=== PATIENT | female | born 1950 | race Caucasian/White ===

== ENCOUNTER 2017-09-10 12:57 | Inpatient (IN) | payer MEDICARE, OTHER ==
[~2017-09-10] VITALS: Ht 160 cm; Wt 75.7 kg
[2017-09-10] VITALS (24 sets, daily range): BP systolic 13–152; BP diastolic 71–103
[~2017-09-10 12:57] MED LIST: AMITRIPTYLINE H25 M2 PO; ASACOL HD800 MG PO; CENTRUM SILVER1 EAC4 PO; FLONASE 0.05%50 MCG NASAL; LEVAQUIN 500 M500 M2 PO; POTASSIUM20 PO; PREDNISONE 20 M20 MG PO; PRINIVIL20 MG; PROTONIX40 M1 PO; TYLENOL325 MG PO; UCERIS9 MG PO; VITAMIN D2000 UNI1 PO; VITAMIN E100 UNI2; VITAMIN E400 UNIT PO; ZESTORETIC 20-1 EAC2 PO
[2017-09-10 13:30] LABS: HEMATOCRIT 42.7 % (37.0-47.0); HEMOGLOBIN 14.7 gm/dL (12.0-15.0); MCH 29.8 pg (26.0-34.0); MCHC 34.4 g/dL (28.0-37.0); MCV 86.6 fL (80.0-100.0); MPV 8.9 fl. (7.2-11.1); NUCLEATED RBCS 0 /100WBC; PLATELET COUNT* 301 thou/uL (150-400); RBC 4.93 mil/uL (4.20-5.00); RDW-CV 14.6 % (10.5-14.5); WBC 6.4 thou/uL (4.0-11.0)
[2017-09-10 13:35] LABS: CALCIUM 8.7 mg/dL (8.5-10.1); POTASSIUM 3.6 mmol/L (3.5-5.1)
[2017-09-10 13:37] LABS: APTT 27.5 Seconds (25.0-31.3); INR 1.1; PROTIME 10.7 Seconds (9.20-11.50)
[2017-09-10] MEDS ORDERED: SIMPONI100 MG/1 M IM (13:43)
[2017-09-10] MEDS ORDERED: APRISO0.375 GM PO (13:44)
[2017-09-10 13:45] LABS: ALBUMIN 3.1 g/dL (3.4-5.0); TOTAL BILIRUBIN 0.4 mg/dL (<0.1-1.0); TOTAL PROTEIN 7.6 g/dL (6.4-8.2)
[2017-09-10] MEDS ORDERED: MAXALT MLT ODT10 M1 PO (13:45)
[2017-09-10] MEDS ORDERED: TOPROL XL25 MG PO (13:46)
[2017-09-10 13:51] LABS: ABSOLUTE EOSINOPHILS 1.5 thou/uL (0.0-0.7); ABSOLUTE LYMPHOCYTES 1.5 thou/uL (0.8-5.3); ABSOLUTE MONOCYTES 0.3 thou/uL (0.0-1.2); ABSOLUTE NEUTROPHILS 3.1 thou/uL (1.6-8.1); HYPOCHROMASIA 1+; PLATELET ESTIMATE ADEQUATE; TOXIC GRANULATION Occasional
--- NOTE | 2017-09-10 15:46 | NUR ---
UPON RE-ASSESSMENT OF GIVING PT MORPHINE, HER PAIN IS STILL 9/10.
--- NOTE | 2017-09-10 17:07 | NUR ---
PT PASSED NURSING BEDSIDE SWALLOW. PER NEUROLOGY THE PATIENT CAN BE ADVANCED TO A REGULAR DIET.
--- NOTE | 2017-09-10 19:37 | NUR ---
PT ARRIVED TO ICU ROOM 3 VIA CART FROM THE ED AT 1550. PT ASSESSMENT CHARTED. VSS. NIH ON ADMISSION WAS 3. PT ABLE TO MOVE ALL EXTREMETIES WITHOUT DIFFICULTY. UP TO BEDSIDE COMMODE WITH SBA. HEADACHE PAIN 10/10 ON ADMISSION. PAIN AT END OF SHIFT 4/10. PRN HYDROCODONE ORDER RECEIVED. IF HEADACHE DOES NOT DECREASE ORDER RECEIVED TO CT HEAD. PT'S AT THE BEDSIDE. NO OTHER COMPLAINTS AT THIS TIME.
[2017-09-11] VITALS (9 sets, daily range): BP systolic 109–153; BP diastolic 60–87
[2017-09-11 02:12] LABS: POC CA IONIZED 4.8 mg/dL (4.5-5.3); POC CREATININE 0.8 mg/dL (0.6-1.3); POC HEMOGLOBIN 15.6 g/dL (12.0-17.0); POC POTASSIUM 3.8 mmol/L (3.5-4.9)
[2017-09-11 03:14] LABS: GLYCOHEMOGLOBIN (HGB A1C) 5.8 % (4.8-5.6)
[2017-09-11 03:23] LABS: URINE BILIRUBIN NEGATIVE (Negative); URINE BLOOD NEGATIVE (Negative); URINE CLARITY CLEAR; URINE COLOR YELLOW; URINE GLUCOSE-RANDOM NEGATIVE (Negative); URINE KETONES NEGATIVE (Negative); URINE LEUKOCYTES-REFLEX NEGATIVE (Negative); URINE NITRITE-REFLEX NEGATIVE (Negative); URINE PROTEIN NEGATIVE (Negative); URINE SPECIFIC GRAVITY <= 1.005 (1.005-1.030); URINE UROBILINOGEN 0.2 E.U./dl (0.2-1.0)
--- NOTE | 2017-09-11 05:07 | NUR ---
ASSUMED CARE OF PT AT 1900, PT ALERT AND ORIENTED X4. VS AND ASSESSMENT STABLE. STAYED IN ROOM WITH PT UNTIL 2100 AND ASSESSED NIH AND VS EVERY 30 MINS TO COMPLETE THE FIRST 8 HOURS POST TPA THEN CONTINUED EVERY HOUR AFTER THE 30 MIN ASSESSMENTS WERE COMPLETED. PT NIH STABLE AND IMPROVING WITH MILD EXPRESSIVE APHAGIA THE ONLY CURRENT DEFICIT PT HAD PRN NORCO FOR HEADACHE RATED 1-2/10 AT 2100 WITH GOOD EFFECT PT STATED HER HEADACHE WAS GONE AND SLEPT THROUGH THE NIGHT EXCEPT DURING NIH ASSESSMENTS. PT RUNNING NSR ON THE TELE MONITOR. WILL CONTINUE TO MONITOR.
[2017-09-11 07:41] LABS: ALKALINE PHOSPHATASE 122 U/L (46-116); ANION GAP 8 mmol/L (7-16); BUN 9 mg/dL (7-18); CALCIUM 8.7 mg/dL (8.5-10.1); CHLORIDE 102 mmol/L (98-107); CHOLESTEROL 157 mg/dL (<200); CO2 26 mmol/L (21-32); CREATININE 0.8 mg/dL (0.6-1.3); GLUCOSE 85 mg/dL (70-99); HDL CHOLESTEROL 37 mg/dL (>40); LDL CHOLESTEROL 74 mg/dL (<100); POTASSIUM 4.3 mmol/L (3.5-5.1); SERUM ASSESSMENT Clear; SGOT 17 U/L (15-37); SGPT 10 U/L (30-65); SODIUM 136 mmol/L (136-145); TC:HDL 4.2 Ratio (Not establshd); TOTAL BILIRUBIN 0.5 mg/dL (<0.1-1.0); TRIGLYCERIDE 233 mg/dL (<150); VLDL 47 mg/dL (<40)
--- NOTE | 2017-09-11 10:45 | NUR ---
PATIENT TRANFER FROM ICU 3 TO TELE FLOOR 2 RM 224, POST MRI REPORT GIVEN FROM RN EDGAR WILL ASSUME CARE WHEN RN GETS TO FLOOR WITH SI PATIENT BED 8
--- NOTE | 2017-09-11 10:56 | NUR ---
I ASSUMED CARE OF THE PATIENT AT 0700. SHE IS ALERT AND ORIENTED X4 AND IS UP WITH STAND BY ASSIST. BED IS IN THE LOW LOCKED POSITION AND CALL LIGHT IS IN REACH. HOURLY ROUNDING WAS COMPLETED AND PATIENT NEEDS ARE MET. PAIN IS MANAGED WITH PRN MEDS. NIH SCORE IS 0 FOR ME X2. PATIENT WAS TRANSPORTED TO MRI AND THEN TRANSFERED TO TELE. ORDERS WERE FAXED TO CT FOR 1600 SCAN. ONE TIME ATIVAN DOSE GIVEN PRIOR TO MRI. ASSESSMENT WAS COMPLETED. SHE WAS TAKEN TO MRI AT 0930 AND I TOOK HER TO 224 TO WAIT FOR HER AT 0945. PATIENT IS PROGRESSING TOWARD GOALS. WILL CONTINUE TO MONITOR.
--- NOTE | 2017-09-11 11:00 | NUR ---
TO 2ND FLOOR WITH ANOTHER PATIENT AND ASSUMMED CARE, PATIENT IN RM AND SPOUSE AT BEDSIDE AND WITHOUT ANY CONCERNS OR REQUESTS
--- NOTE | 2017-09-11 13:37 | NUR ---
MET WITH PT AND SPOUSE TO DISCUSS HOME SITUATION/DC PLANNING. PT LIVES WITH SPOUSE. SHE IS NORMALLY INDEPENDENT AND ACTIVE. USES NO EQUIPMENT OR HOME CARE. STATES SHE IS TALKING MORE CLEARLY TODAY AND PLEASED ABOUT THAT. PT ADMITTED WITH CVA. THERAPY EVALS IN PROCESS. PT HASN'T HAD HH IN PAST OR BEEN TO SNF. WILL FOLLOW
--- NOTE | 2017-09-11 14:29 | 2DMMODE ---
[place] [address] 2 D/M-MODE ECHOCARDIOGRAM Name: DEBI GUADARRAMA [facility] IN [facility]#: [id number] Admission: 09/10/17 Attend Phys: Aguilar Gillette, Discharge: Date of : 52 Date of Service: 09/11/17 1429 Report #: [id number] THIS REPORT FOR: //name// APPROVED REPORT Study performed: 09/11/2017 10:33:48 EXAM: Comprehensive 2D, Doppler, and color-flow Echocardiogram Patient Location: In-Patient Room #: [facility] Status: routine BSA: 1.77 HR: 74 bpm BP: 135/80 mmHg Rhythm: NSR Other Information Study Quality: Good Indications CVA/TIA Echo Enhancing Agent Indication: Rule out Shunt Agent(s) / Amount(s) Used: Agitated Saline 10 cc 2D Dimensions LVEF(%): 78.88 (>50%) IVSd: 12.35 (7-11mm) LVOT Diam: 21.67 (18-24mm) LVDd: 42.70 mm PWd: 10.26 (7-11mm) Ascending Ao: 38.76 (22-36mm) LVDs: 22.56 (25-40mm) Aortic Root: 36.14 mm Dawkins's LVEF: 78.88 % Volumes Left Atrial Volume (Systole) LA ESV Index: 21.90 mL/m2 Aortic Valve AoV Peak Nicho.: 1.01 m/s AO Peak Gr.: 4.08 mmHg LVOT Max P.81 mmHg AO Mean Gr.: 2.31 mmHg LVOT Mean P.41 mmHg LVOT Max V: 0.84 m/s AO V2 VTI: 22.64 cm LVOT Mean V: 0.55 m/[place] [address] 2 D/M-MODE ECHOCARDIOGRAM Name: DEBI GUADARRAMA Room: [address] IN .R.#: [id number] Admission: 09/10/17 Attend Phys: Aguilar Gillette, Discharge: Date of : 52 Date of Service: 09/11/17 1429 Report #: [id number] ERIC (VTI): 3.52 cm2 LVOT V1 VTI: 21.62 cm Mitral Valve E/A Ratio: 1.06 MV Decel. Time: 203.05 ms MV E Max Nicho.: 0.70 m/s MV PHT: 58.88 ms MVA (PHT): 3.74 cm2 TDI E/Lateral E': 8.75 E/Medial E': 7.78 Medial E' Nicho.: 0.09 m/s Lateral E' Nicho.: 0.08 m/s Pulmonary Valve PV Peak Nicho.: 0.75 m/s PV Peak Gr.: 2.22 mmHg Left Ventricle The left ventricle is normal size. There is normal LV segmental wall motion. There is normal left ventricular wall thickness. Left ventricular systolic function is normal. The left ventricular ejection fraction is within the normal range. LVEF is 65-70%. The left ventricular diastolic function is normal. Right Ventricle The right ventricle is normal size. The right ventricular systolic function is normal. Atria The left atrium size is normal. Interatrial septum is intact without evidence of ASD or PFO. The right atrium size is normal. Aortic Valve The aortic valve is normal in structure. No aortic regurgitation is present. There is no aortic valvular stenosis. Mitral Valve The mitral valve is normal in structure. Trace mitral regurgitation. No evidence of mitral valve stenosis. Tricuspid Valve The tricuspid valve is normal in structure. Unable to assess PA pressure. Trace tricuspid regurgitation. Pulmonic Valve Pulmonic valve is not well visualized. There [place] [address] 2 D/M-MODE ECHOCARDIOGRAM Name: DEBI GUADARRAMA Room: [address] IN M.R.#: [id number] Admission: 09/10/17 Attend Phys: Aguilar Gillette, Discharge: Date of : 52 Date of Service: 09/11/17 1429 Report #: [id number] regurgitation. Great Vessels Aortic root is mildly dilated. IVC is normal in size and collapses with >50% inspiration Pericardium There is no pericardial effusion. <Conclusion> LVEF is 65-70%. Interatrial septum is intact without evidence of ASD or PFO. <ELECTRONICALLY SIGNED> By: Kevin Malone MD, FACC 09/11/17 1429 1429 1429 Kevin Malone MD, FACC /INF
[2017-09-12] VITALS: BP 124/77; BP 179/99
[2017-09-12 04:00] VITALS: BP 155/97
--- NOTE | 2017-09-12 05:10 | NUR ---
PT IS ABLE TO COMMUNICATE HER NEEDS TO STAFF EFFECTIVELY. CURRENT PAIN MEDICATION REGIMEN HAS BEEN ADEQUATE FOR CONTROLLING HER PAIN UP TO THIS TIME. PT PASSED BEDSIDE SWALLOW TEST BEFORE MED PASS AT THE BEGINNING OF THIS SHIFT. PT REPORTS HER VISION BEING BACK TO NORMAL AND HEADACHE GONE, AT THE BEGINNING OF THIS SHIFT.
--- NOTE | 2017-09-12 07:30 | NUR ---
CHANGE OF SHIFT, BEDSIDE REPORT GIVEN ASSUMED PATIENT CARE PATIENT SEN AT BEDSIDE, ASLEEP BED ALARM SET
[2017-09-12 08:00] VITALS: BP 156/84
[2017-09-12 12:00] VITALS: BP 141/82
[2017-09-12 15:17] VITALS: BP 141/82
--- NOTE | 2017-09-12 15:50 | NUR ---
PATIENT DCD TO HOME DC INSTRUCTIONS GIVEN, ACKNOWLEDGED AND SIGNED COPIES GIVEN IV AND HEART MONITOR REMOVED PERSONAL BELONGINGS RETURNED ASSISTED OUT VIA WC GOOD CONDITION TO WAITING CAR
--- NOTE | 2017-09-16 19:06 | CON ---
[address] [address] CONSULTATION Name: DEBI GUADARRAMA Room: [address] IN M.R.#: [id number] Admission: 09/10/17 Attend Phys: Aguilar Gillette MD Discharge: 09/12/17 Date of : 52 Report #: [id number] THIS REPORT FOR: //name// CC: Aguilar Newman DATE OF SERVICE: 09/10/2017 HISTORY OF PRESENT ILLNESS: This is a 67-year-old female patient who presented to Emergency Room with acute onset of slurring of the speech and inability to write. She was pretty significantly aphasic as I understood from the Emergency Room physician. She also had some vision difficulty, which may be hemianopsia. She was evaluated by Emergency Room physician, Dr. Mejias and she evaluated the patient as a stroke protocol. As I understand, she was within the 3-hour windows and after discussing with the patient indication, potential complication and alternatives with the patient, she was given TPA. She tolerated the TPA reasonably well and TPA was already complete when I saw this patient and she had no adverse effect from that. Her symptom has significantly improved. As a workup, she had initially the CT head and subsequently CTA of the head and neck. She also has a perfusion scan, which demonstrated left cerebral transit time was increased. REVIEW OF SYSTEMS: Indicate that she has a history of migraine. This is going on for several years. She takes Maxalt. She will take 1, Maxalt at one time, then she may not need one for several months. So, these migraine headaches are not very frequent. She never had any focal neurological deficit with a migraine headache. She thought she may have had some speech difficulty about a week ago, but she is not very clear about it. She does have a history of ulcerative colitis. She does not have any active bleeding going on. She also has a history of duodenal ulcer. Again, there is no active disease going on in that regard in this patient. In fact, her hemoglobin was normal. Presently, her symptoms are much improved, but she is having headache, which actually she had it for at least 10 days or so. The migraine headache she typically has is bilateral. It is associated with some nausea and all was associated with a photophobia. REVIEW OF SYSTEMS: Her 14-point review of system was carried out. This was her relevant 14-point review of system. PAST MEDICAL HISTORY: Positive for migraine. FAMILY HISTORY: Negative for early age stroke. SOCIAL HISTORY: She does not smoke or drink alcohol. PHYSICAL EXAMINATION: [place] [address] CONSULTATION Name: DEBI GUADARRAMA Room: [address] IN ..#: [id number] Admission: 09/10/17 Attend Phys: Aguilar Gillette MD Discharge: 09/12/17 Date of : 52 Report #: [id number] NEUROLOGICAL: Indicate she is alert, responsive, able to follow simple and complex command. Her speech still some hesitant but apparently is much improved than when she came in. Cranial nerve examination on my examination looks unremarkable. I did not find any hemianopsia in this patient but she has some nonspecific vision symptoms, which according to her is becoming better. She does not have any facial palsy. Her strength, sensation, reflexes and tones are symmetrical. She has no cerebellar sign. I could not look at the patient's fundus. CARDIAC: Her records were reviewed and is summarized as above especially CT angiogram was reviewed. LUNGS: The patient has no respiratory difficulty or rhonchi. GENERAL: She is a very well-developed individual who does not have any dysmorphic features of eyes, ears and face. HEENT: Her vision and hearing looks adequate. EXTREMITIES: She has good pulses and she has no edema, cyanosis or jaundice. NECK: She has no thyroid mass or carotid bruit. VITAL SIGNS: Blood pressure when she came in was 152/91, respiration was 16, pulse 93 and temperature 98.2. LABORATORY DATA AND RADIOLOGICAL DATA: Imaging study was reviewed and summarized above. She has no rhonchi or respiratory difficulty. IMPRESSION AND PLAN: This patient presented with stroke-like symptoms referable to the left cerebral hemisphere. She is stable after receiving tissue plasminogen activator. Tissue plasminogen activator was given by Emergency Room physician after discussing the indication, potential complication, and alternatives with the patient and after the patient understood all those and was agreeable with that. I further discussed all of it with the patient and she understood that again and she indicated that she is aware of it because they have been discussed. I was going to do an MRI in this patient. The patient indicates that she will need sedation for Valium. She gives a history that she may have had a little speech difficulty about a week ago and because of that, I do want to sedate and indicate she has any bleeding, we need to know early. Therefore, I postponed the MRI until tomorrow after talking to the patient. I will suggest that she gets some swallow evaluation. She is not having any significant speech difficulty at the moment and that has resolved, so it is okay to do the bedside swallow and start feeding her if she passes the bedside swallow and since speech difficulty has resolved, I do not believe there is any need to wait for speech therapy to do the evaluation. She got some dye, so we should push some fluids. We should follow the tissue plasminogen activator protocol after that and tomorrow, we will do the testing including MRI in this patient. She also has multiple other issues in the past and those need to be addressed in this patient including a question of temporal arteritis and rheumatoid arthritis, but they will be addressed [place] [address] CONSULTATION Name: ARISTIDESNIDANATDEBI Room: [address] IN .R.#: [id number] Admission: 09/10/17 Attend Phys: Aguilar Gillette MD Discharge: 09/12/17 Date of : 52 Report #: [id number] Thank you very much for allowing me to share in the management of this patient and we will follow the patient along with you. <ELECTRONICALLY SIGNED> By: Subhash Sears MD 09/16/17 1906 1650 [id number] Sears MD /nt
== END 2017-09-12 15:50 | disposition home or self-care (01) | DRG 61 ==
LOC: M.ERS 12:57 → M.ICU 15:01 → M.TBA-ER 15:01 → M.ICU 15:51 → M.2W 09-11 10:05
PROVIDERS: Personal Emergency Response Attendant; ADMIT Internal Medicine
DX: G45.9 Transient cerebral ischemic attack, unspecified (principal); G93.40 Encephalopathy, unspecified; K51.90 Ulcerative colitis, unspecified, without complications; R47.01 Aphasia; G43.109 Migraine with aura, not intractable, without status migrainosus; K57.90 Diverticulosis of intestine, part unspecified, without perforation or abscess without bleeding; M79.7 Fibromyalgia; Z79.82 Long term (current) use of aspirin; H54.7 Unspecified visual loss; Z79.899 Other long term (current) drug therapy; Z85.3 Personal history of malignant neoplasm of breast; Z90.11 Acquired absence of right breast and nipple; Z92.21 Personal history of antineoplastic chemotherapy; Z90.710 Acquired absence of both cervix and uterus; Z88.1 Allergy status to other antibiotic agents; Z88.0 Allergy status to penicillin

== ENCOUNTER → 2018-01-12 | Outpatient (CLI) | payer MEDICARE, OTHER ==
[~2018-01-12] MED LIST changes: +ANUSOL-HC25 MG RECTAL; +APRISO0.375 GM PO; +LIDOCAINE 2%2 %/5 GM TOP; +MAXALT MLT ODT10 M1 PO; +PLAVIX 300 MG300 M1 PO; +PREDNISONE 10 M10 MG PO; +SIMPONI100 MG/1 M IM; +TOPROL XL25 MG PO
== END ==
LOC: M.RAD 13:02
DX: Z12.31 Encounter for screening mammogram for malignant neoplasm of breast (principal)

== ENCOUNTER 2018-01-22 16:35 | Emergency (ER) | payer MEDICARE, OTHER ==
[~2018-01-22] VITALS: Ht 160 cm; Wt 70.3 kg
[~2018-01-22 16:35] MED LIST changes: -ANUSOL-HC25 MG RECTAL; -LIDOCAINE 2%2 %/5 GM TOP; -PLAVIX 300 MG300 M1 PO; -PREDNISONE 10 M10 MG PO
[2018-01-22 18:07] VITALS: BP 156/103
== END 2018-01-22 18:07 | disposition home or self-care (01) ==
LOC: M.ERS 16:35
DX: I83.92 Asymptomatic varicose veins of left lower extremity (principal); M79.7 Fibromyalgia; Z88.0 Allergy status to penicillin; Z88.1 Allergy status to other antibiotic agents; Z88.6 Allergy status to analgesic agent; Z90.710 Acquired absence of both cervix and uterus

== ENCOUNTER 2018-06-14 11:12 | Emergency (ER) | payer MEDICARE, OTHER ==
[~2018-06-14] VITALS: Ht 162.6 cm; Wt 72.6 kg
[2018-06-14] MEDS ORDERED: PLAVIX 300 MG300 M1 PO (11:25)
[2018-06-14] MEDS ORDERED: PREDNISONE 10 M10 MG PO (11:25)
[2018-06-14 12:21] LABS: HEMATOCRIT 35.8 % (37.0-47.0); HEMOGLOBIN 11.9 gm/dL (12.0-15.0); MCH 27.4 pg (26.0-34.0); MCHC 33.1 g/dL (28.0-37.0); MCV 82.6 fL (80.0-100.0); MPV 7.6 fl. (7.2-11.1); NUCLEATED RBCS 0 /100WBC; PLATELET COUNT* 544 thou/uL (150-400); RBC 4.33 mil/uL (4.20-5.00); RDW-CV 15.5 % (10.5-14.5); WBC 11.2 thou/uL (4.0-11.0)
[2018-06-14 12:26] LABS: ANION GAP 10 mmol/L (7-16); BUN 25 mg/dL (7-18); CALCIUM 9.7 mg/dL (8.5-10.1); CHLORIDE 95 mmol/L (98-107); CO2 23 mmol/L (21-32); CREATININE 1.3 mg/dL (0.6-1.3); GLUCOSE 140 mg/dL (70-99); POTASSIUM 4.4 mmol/L (3.5-5.1); SODIUM 128 mmol/L (136-145)
[2018-06-14 12:36] LABS: ALBUMIN 2.8 g/dL (3.4-5.0); ALKALINE PHOSPHATASE 129 U/L (46-116); LIPASE 57 U/L (73-393); SGOT 15 U/L (15-37); SGPT 17 U/L (30-65); TOTAL BILIRUBIN 0.3 mg/dL (<0.1-1.0); TOTAL PROTEIN 8.1 g/dL (6.4-8.2); TROPONIN-I LEVEL <0.06 ng/mL (<0.06)
[2018-06-14 12:53] LABS: ABSOLUTE LYMPHOCYTES 1.9 thou/uL (0.8-5.3); ABSOLUTE NEUTROPHILS 9.3 thou/uL (1.6-8.1); ATYPICAL LYMPHS 4 %; METAMYELOCYTES 1 %; MYELOCYTES 1 %; PLATELET ESTIMATE ADEQUATE
[2018-06-14] MEDS ORDERED: LIDOCAINE 2%2 %/5 GM TOP (14:17)
[2018-06-14] MEDS ORDERED: ANUSOL-HC25 MG RECTAL (14:17)
[2018-06-14 15:04] VITALS: BP 100/60
--- NOTE | 2018-06-14 17:55 | EKG ---
[place] [address] ELECTROCARDIOGRAM REPORT Name: DEBI GUADARRAMA Room: [facility]#: [id number] Admission: 06/14/18 Attend Phys: Discharge: 06/14/18 Date of : 52 Report #: [id number] THIS REPORT FOR: //name// [facility] ED Test Date: 2018-06-14 Test Time: 12:40:06 Pat Name: DEBI GUADARRAMA Department: Room: Gender: F Staffing Assistant: Sid SANTILLAN : 1950 Requested By: Ross Hughes Order Number: [id number] MD: Jhony Lowery Measurements Intervals [place] Rate: 88 P: 33 MI: 163 QRS: 20 QRSD: 118 T: 25 QT: 363 QTc: 440 Interpretive Statements Sinus rhythm Possible left atrial enlargement Low voltage, precordial leads Baseline wander in lead(s) V1,V3 Compared to ECG 10/11/2014 16:32:34 Low QRS voltage now present Myocardial infarct finding no longer present Electronically Signed On 06-14-2018 17:55:01 CDT by Jhony Lowery [email or web address] <ELECTRONICALLY SIGNED> By: Jhony Lowery MD, FACC 06/14/18 1755 1240 1240 Jhony Lowery MD, FACC /EPI
== END 2018-06-14 15:05 | disposition home or self-care (01) ==
LOC: M.ERS 11:12
PROVIDERS: Emergency Medicine Emergency Medical Services
DX: K51.90 Ulcerative colitis, unspecified, without complications (principal); K60.2 Anal fissure, unspecified; M79.7 Fibromyalgia; M06.9 Rheumatoid arthritis, unspecified; L40.9 Psoriasis, unspecified; Z88.6 Allergy status to analgesic agent; Z88.1 Allergy status to other antibiotic agents; Z88.0 Allergy status to penicillin; N80.9 Endometriosis, unspecified; Z85.3 Personal history of malignant neoplasm of breast; Z90.710 Acquired absence of both cervix and uterus; Z86.73 Personal history of transient ischemic attack (TIA), and cerebral infarction without residual deficits

== ENCOUNTER → 2018-09-21 | Outpatient (CLI) | payer MEDICARE, OTHER ==
[~2018-09-21] MED LIST changes: +ANUSOL-HC25 MG RECTAL; +LIDOCAINE 2%2 %/5 GM TOP; +PLAVIX 300 MG300 M1 PO; +PREDNISONE 10 M10 MG PO
== END ==
LOC: M.ULTRA 11:30
DX: N28.1 Cyst of kidney, acquired (principal)

== ENCOUNTER → 2019-04-21 | Outpatient (CLI) | payer MEDICARE, OTHER | LOC: M.RAD 12:11 → M.ULTRA 12:11 | DX: Z12.31 Encounter for screening mammogram for malignant neoplasm of breast (principal); I73.9 Peripheral vascular disease, unspecified; Z88.0 Allergy status to penicillin; Z88.8 Allergy status to other drugs, medicaments and biological substances; Z85.3 Personal history of malignant neoplasm of breast ==

== ENCOUNTER → 2020-09-20 | Outpatient (CLI) | payer MEDICARE, OTHER ==
[2020-09-20 13:01] LABS: ABSOLUTE LYMPHOCYTES 0.8 thou/uL (0.8-5.3); ABSOLUTE MONOCYTES 0.3 thou/uL (0.0-1.2); ABSOLUTE NEUTROPHILS 1.8 thou/uL (1.6-8.1); BASOPHILS 1.4 %; EOSINOPHILS 1.3 %; HEMATOCRIT 34.2 % (37.0-47.0); HEMOGLOBIN 11.4 gm/dL (12.0-15.0); LYMPHOCYTES 27.2 %; MCH 26.5 pg (26.0-34.0); MCHC 33.4 g/dL (28.0-37.0); MCV 79.4 fL (80.0-100.0); MONOCYTES 10.1 %; MPV 7.2 fl. (7.2-11.1); NUCLEATED RBCS 0 /100WBC; PLATELET COUNT* 193 thou/uL (150-400); RBC 4.31 mil/uL (4.20-5.00); RDW-CV 17.5 % (10.5-14.5); WBC 2.9 thou/uL (4.0-11.0)
[2020-09-20 13:08] LABS: CALCIUM 9.8 mg/dL (8.5-10.1); CREATININE 1.2 mg/dL (0.6-1.3); POTASSIUM 4.4 mmol/L (3.5-5.1)
--- NOTE | 2020-09-20 14:07 | EKG ---
[place] [address] ELECTROCARDIOGRAM REPORT Name: DEBI GUADARRAMA Room: [facility]#: [id number] Admission: 09/20/20 Attend Phys: Jesusita Joe Discharge: Date of : 52 Date of Service: 09/20/20 1336 Report #: [id number] THIS REPORT FOR: //name// [facility] Test Date: 2020-09-20 Test Time: 13:36:50 Pat Name: DEBI GUADARRAMA Department: Room: Gender: F [employer] Worker: : 1950 Requested By: Jesusita Sutherland Order Number: [id number] MD: Kevin Malone Measurements Intervals [place] Rate: 72 P: 28 FL: 192 QRS: 43 QRSD: 105 T: 48 QT: 404 QTc: 443 Interpretive Statements Sinus rhythm Left atrial enlargement Compared to ECG 06/14/2018 12:40:06 No significant changes Electronically Signed On 09-20-2020 14:07:06 [employer] DIRECT[employer] by Kevin Malone [email or web address] <ELECTRONICALLY SIGNED> By: Kevin Malone MD, [facility] 09/20/20 1407 1336 1336 Kevin Malone MD, [facility] /EPI
== END ==
LOC: M.LAB 12:28
PROVIDERS: ATTEND Urology
DX: Z12.31 Encounter for screening mammogram for malignant neoplasm of breast (principal); N32.9 Bladder disorder, unspecified; N39.0 Urinary tract infection, site not specified; I49.9 Cardiac arrhythmia, unspecified; I51.7 Cardiomegaly

== ENCOUNTER → 2020-11-06 | Outpatient (CLI) | payer MEDICARE, OTHER | LOC: M.RAD 12:58 | PROVIDERS: ATTEND Internal Medicine | DX: I48.0 Paroxysmal atrial fibrillation (principal); M47.9 Spondylosis, unspecified ==

== ENCOUNTER 2020-12-16 14:37 | Emergency (ER) | payer MEDICARE, OTHER ==
[~2020-12-16] VITALS: Ht 160 cm; Wt 72.6 kg
[2020-12-16] MEDS ORDERED: ASA81BEC PO (14:52)
[2020-12-16] MEDS ORDERED: ENTYVIO300 MG IV (14:52)
[2020-12-16] MEDS ORDERED: METFORMIN HCL500 M3 PO (14:53)
[2020-12-16] MEDS ORDERED: CEPHALEXIN500 MG PO (15:43)
[2020-12-16] MEDS ORDERED: TRIAMCINOLONE A80 G2 TOP (15:43)
[2020-12-16 16:00] VITALS: BP 117/80
== END 2020-12-16 16:01 | disposition home or self-care (01) ==
LOC: M.ERS 14:37
DX: L53.9 Erythematous condition, unspecified (principal); R21 Rash and other nonspecific skin eruption; M79.7 Fibromyalgia; L40.9 Psoriasis, unspecified; N80.9 Endometriosis, unspecified; Z88.6 Allergy status to analgesic agent; Z88.0 Allergy status to penicillin; Z88.1 Allergy status to other antibiotic agents; Z85.3 Personal history of malignant neoplasm of breast; Z90.11 Acquired absence of right breast and nipple; Z90.710 Acquired absence of both cervix and uterus; Z86.73 Personal history of transient ischemic attack (TIA), and cerebral infarction without residual deficits

== ENCOUNTER → 2021-01-29 | Outpatient (CLI) | payer MEDICARE, OTHER ==
[~2021-01-29] MED LIST changes: +ASA81BEC PO; +CEPHALEXIN500 MG PO; +ENTYVIO300 MG IV; +METFORMIN HCL500 M3 PO; +TRIAMCINOLONE A80 G2 TOP
[2021-01-29 10:55] LABS: ABSOLUTE LYMPHOCYTES 0.4 thou/uL (0.8-5.3); ABSOLUTE MONOCYTES 0.2 thou/uL (0.0-1.2); ABSOLUTE NEUTROPHILS 1.8 thou/uL (1.6-8.1); BASOPHILS 1.4 %; EOSINOPHILS 0.8 %; HEMATOCRIT 33.8 % (37.0-47.0); HEMOGLOBIN 11.5 gm/dL (12.0-15.0); LYMPHOCYTES 16.1 %; MCH 25.3 pg (26.0-34.0); MCHC 34.1 g/dL (28.0-37.0); MCV 74.1 fL (80.0-100.0); MONOCYTES 7.2 %; MPV 6.5 fl. (7.2-11.1); NUCLEATED RBCS 0 /100WBC; PLATELET COUNT* 219 thou/uL (150-400); POLYS 74.5 %; RBC 4.56 mil/uL (4.20-5.00); RDW-CV 15.3 % (10.5-14.5); WBC 2.4 thou/uL (4.0-11.0)
[2021-01-29 12:03] LABS: CREATININE 0.9 mg/dL (0.6-1.3)
== END ==
LOC: M.LAB 01-28 10:30 → M.CT 01-28 11:30 → M.LAB 10:30
PROVIDERS: ATTEND Internal Medicine Gastroenterology
DX: K57.30 Diverticulosis of large intestine without perforation or abscess without bleeding (principal); K80.80 Other cholelithiasis without obstruction; K76.0 Fatty (change of) liver, not elsewhere classified; R16.1 Splenomegaly, not elsewhere classified; N28.1 Cyst of kidney, acquired; R91.1 Solitary pulmonary nodule; J43.9 Emphysema, unspecified; J98.11 Atelectasis; I70.0 Atherosclerosis of aorta; D17.79 Benign lipomatous neoplasm of other sites; D64.9 Anemia, unspecified; M47.815 Spondylosis without myelopathy or radiculopathy, thoracolumbar region; D72.819 Decreased white blood cell count, unspecified; Z90.710 Acquired absence of both cervix and uterus

== ENCOUNTER → 2021-04-30 | Outpatient (CLI) | payer MEDICARE, OTHER | LOC: M.RAD 11:17 | PROVIDERS: ATTEND Internal Medicine | DX: M19.072 Primary osteoarthritis, left ankle and foot (principal); M17.12 Unilateral primary osteoarthritis, left knee; M85.88 Other specified disorders of bone density and structure, other site; M18.0 Bilateral primary osteoarthritis of first carpometacarpal joints; M25.522 Pain in left elbow; G89.29 Other chronic pain ==